=== PATIENT | female | born 1985 | race Caucasian/White ===

== ENCOUNTER 2021-02-09 02:03 | Emergency (ER) | payer OTHER ==
[2021-02-09] MEDS ORDERED: DEXAMETHASONE SOD PHOSPHATE 10 MG/1 ML VIAL ONE (02:20)
[2021-02-09] MEDS ORDERED: EPINEPHrine/PF 1 MG/1 ML (1:1,000) AMPULE IM ONE (02:28)
[2021-02-09] MEDS ORDERED: EPINEPHrine/PF 1 MG/1 ML (1:1,000) AMPULE ONE (02:28)
[2021-02-09] MEDS ORDERED: FAMOTIDINE 20 MG/50 ML IVPB 20 MG/50 ML MG IVPB ONE ×2 (02:29→02:35)
[2021-02-09 02:40] VITALS: TEMP 97.8; BMI 27.4
[2021-02-09 06:12] VITALS: BP 132/78; PULSE 72
== END 2021-02-09 06:15 | disposition home or self-care (01) ==
LOC: JER 02:03
PROC: 3E023GC Introduction of Other Therapeutic Substance into Muscle, Percutaneous Approach (ICD-10-PCS; principal; 2021-02-09)
PROC: 3E033GC Introduction of Other Therapeutic Substance into Peripheral Vein, Percutaneous Approach (ICD-10-PCS; 2021-02-09)
DX: T78.2XXA Anaphylactic shock, unspecified, initial encounter (principal)
CPT/HCPCS: 99284-25